=== PATIENT | male | born 1960 | race Caucasian/White ===

== ENCOUNTER 2022-02-19 18:37 | Observation (INO) | payer OTHER ==
[~2022-02-19] VITALS: Ht 185.4 cm; Wt 93.0 kg
[2022-02-19 19:21] LABS: HEMOGLOBIN 14.8 gm/dl (14.0-17.5); RED BLOOD COUNT 4.93 M/UL (4.20-5.50); WHITE BLOOD COUNT 12.7 K/UL (4.5-11.0)
[2022-02-19 20:00] LABS: BUN/CREATININE RATIO 14 (0-10)
[2022-02-20 04:40] LABS: HEMOGLOBIN 13.8 gm/dl (14.0-17.5); RED BLOOD COUNT 4.58 M/UL (4.20-5.50)
[2022-02-20 05:05] LABS: BUN/CREATININE RATIO 18 (0-10)
--- NOTE | 2022-02-20 05:24 | NUR ---
NOTIFIED DR. YANG OF ABNORMAL EKG RESULTS, NO NEW ORDERS AT THIS TIME.
--- NOTE | 2022-02-20 05:50 | NUR ---
NOTIFIED DR. YANG OF TROPONIN OF 119.3, AND REMINDED HIM THAT THE PREVIOUS ONE WAS 58.9. NO NEW ORDERS AT THIS TIME. WILL PASS ALONG TO DAYSHIFT NURSE.
--- NOTE | 2022-02-20 17:10 | NUR ---
called back pharmacist r/t patient home medications and stated he recived and will take care of the medications
[2022-02-21] MEDS ORDERED: SENNA8.6 MG PO (04:14)
[2022-02-21 05:14] LABS: RED BLOOD COUNT 4.28 M/UL (4.20-5.50); WHITE BLOOD COUNT 9.9 K/UL (4.5-11.0)
[2022-02-21 05:34] LABS: BUN/CREATININE RATIO 15 (0-10)
--- NOTE | 2022-02-21 08:47 | NUR ---
received order from dr. rawls and administered nitroglycerin as ordered and was given to patient x1 sl and when patient checked after 5 min patient denies chest pain. patient was given 022l via nasal canula r/t sob and when checked after 5 min patient was not using oxygen and pulse ox 99% and patient refused to use oxygne. at this time patient resting comfortably and continue to denies any chest pain.
--- NOTE | 2022-02-21 09:05 | NUR ---
patient condition reported and order received to dr. verduzco sausage meat trimmer
[2022-02-21] MEDS ORDERED: PROTONIX 40 MG40 M1 PO (12:09)
[2022-02-21] MEDS ORDERED: TRAMADOL HCL50 MG PO (12:10)
[2022-02-21] MEDS ORDERED: ASPIRIN EC81 MG PO (12:10)
[2022-02-21] MEDS ORDERED: COREG 3.125M3.125 MG PO (12:11)
[2022-02-21] MEDS ORDERED: FLUOXETINE HCL40 MG PO (12:11)
[2022-02-21] MEDS ORDERED: QUETIAPINE FUMA25 MG PO (12:12)
[2022-02-21] MEDS ORDERED: CRESTOR40 MG PO (12:12)
[2022-02-21] MEDS ORDERED: ZINC OXIDE60 GM TP (12:14)
[2022-02-21] MEDS ORDERED: PREGABALIN100 MG PO (12:15)
[2022-02-21] MEDS ORDERED: ACETAMINOPHEN500 MG PO (12:15)
[2022-02-21] MEDS ORDERED: HYDROCHLOROTHIA25 MG PO (12:16)
[2022-02-21] MEDS ORDERED: HYDROCODON-ACE1 EAC4 PO (12:17)
[2022-02-21] MEDS ORDERED: LISINOPRIL10 MG PO (12:18)
[2022-02-21] MEDS ORDERED: DOK100 M1 PO (12:19)
[2022-02-21] MEDS ORDERED: SODIUM CHLORIDE15 ML INH (12:19)
[2022-02-21] MEDS ORDERED: LACTULOSE10 GM/151 PO (12:20)
[2022-02-21] MEDS ORDERED: VOLTAREN ARTHRI20 GM TOP (12:21)
[2022-02-21] MEDS ORDERED: BISACODYL10 MG PR (13:16)
[2022-02-21] MEDS ORDERED: LIORESAL TAB 1010 MG PO ×2 (13:17→13:18)
[2022-02-22 04:17] LABS: BUN/CREATININE RATIO 18 (0-10)
[2022-02-22 04:20] LABS: HEMOGLOBIN 12.3 gm/dl (14.0-17.5); RED BLOOD COUNT 4.11 M/UL (4.20-5.50); WHITE BLOOD COUNT 8.6 K/UL (4.5-11.0)
[2022-02-22] MEDS ORDERED: ISOSORBIDE MONO30 MG PO (09:55)
[2022-02-22] MEDS ORDERED: RANEXA500 MG PO (09:55)
--- NOTE | 2022-02-22 15:08 | NUR ---
PATIENT RECEIVED FROM SUREKHA, I AGREE WITH HER ASSESSMENT
--- NOTE | 2022-02-22 21:05 | NUR ---
REPORT GIVEN TO [facility], SKIN ASSESSMENT COMPLETED-NO SKIN ISSUES NOTED. VITALS 97.9, HR 77, O2 98% ON ROOM AIR, RR 16 AND BP 105/55. PT NOTED WITH NO COMPLAINTS OF PAIN OR CONCERNS AT THIS TIME.
--- NOTE | 2022-02-22 21:14 | NUR ---
211: PATIENT LEFT THE FLOOR WITH EMS X2, STABLE.
== END 2022-02-22 21:21 ==
LOC: ER1 18:37 → M/S 02-20 01:50 → CDU 02-20 01:50 → M/S 02-20 02:55
PROVIDERS: Internal Medicine; Internal Medicine Cardiovascular Disease; Physician Assistant; ADMIT Internal Medicine
DX: R07.89 Other chest pain (principal); I10 Essential (primary) hypertension; F32.A Depression, unspecified; I25.10 Atherosclerotic heart disease of native coronary artery without angina pectoris; J44.9 Chronic obstructive pulmonary disease, unspecified; K21.9 Gastro-esophageal reflux disease without esophagitis; K80.20 Calculus of gallbladder without cholecystitis without obstruction; I69.020 Aphasia following nontraumatic subarachnoid hemorrhage; I69.051 Hemiplegia and hemiparesis following nontraumatic subarachnoid hemorrhage affecting right dominant side; E78.5 Hyperlipidemia, unspecified; Z20.822 Contact with and (suspected) exposure to COVID-19; I07.1 Rheumatic tricuspid insufficiency; Z79.82 Long term (current) use of aspirin; R77.8 Other specified abnormalities of plasma proteins
CPT/HCPCS: ECHO; 36415; 71045; 76705; 80048; 80053; 80061; 81001; 82533; 82550; 82553; 83605; 83690; 83735; 83880; 83930; 83935; 84100; 84300; 84439; 84443; 84484; 84550; 85025; 86140; 87086; 92610; 93005; 93306; 96372; 96374; 96376; 99285; G0378; J1650; J2405; Q9967; U0002

== ENCOUNTER 2022-03-30 21:15 | Emergency (ER) | payer OTHER ==
[~2022-03-30 21:15] MED LIST: ACETAMINOPHEN500 MG PO; ASPIRIN EC81 MG PO; BISACODYL10 MG PR; COREG 3.125M3.125 MG PO; CRESTOR40 MG PO; DOK100 M1 PO; FLUOXETINE HCL40 MG PO; HYDROCHLOROTHIA25 MG PO; HYDROCODON-ACE1 EAC4 PO; ISOSORBIDE MONO30 MG PO; LACTULOSE10 GM/151 PO; LIORESAL TAB 1010 MG PO; LISINOPRIL10 MG PO; PREGABALIN100 MG PO; PROTONIX 40 MG40 M1 PO; QUETIAPINE FUMA25 MG PO; RANEXA500 MG PO; SENNA8.6 MG PO; SODIUM CHLORIDE15 ML INH; TRAMADOL HCL50 MG PO; VOLTAREN ARTHRI20 GM TOP; ZINC OXIDE60 GM TP
[2022-03-30 21:50] LABS: HEMOGLOBIN 14.5 gm/dl (14.0-17.5); RED BLOOD COUNT 4.7 M/UL (4.20-5.50); WHITE BLOOD COUNT 8.3 K/UL (4.5-11.0)
[2022-03-30 22:12] LABS: BUN/CREATININE RATIO 15 (0-10)
== END 2022-03-31 01:48 | disposition home or self-care (01) ==
LOC: ER1 21:15
PROVIDERS: Physician Assistant
DX: R51.9 Headache, unspecified (principal); R11.2 Nausea with vomiting, unspecified; M54.2 Cervicalgia; E11.9 Type 2 diabetes mellitus without complications; I10 Essential (primary) hypertension; Z86.73 Personal history of transient ischemic attack (TIA), and cerebral infarction without residual deficits
CPT/HCPCS: 70450; 72125; 80053; 85025; 93005; 96374; 96375; 99284; J2270; J2405

== ENCOUNTER → 2022-05-07 | Outpatient (CLI) | payer OTHER | LOC: LAB 19:39 | DX: E11.9 Type 2 diabetes mellitus without complications (principal); E78.5 Hyperlipidemia, unspecified; I10 Essential (primary) hypertension | CPT/HCPCS: 84153 ==

== ENCOUNTER 2022-07-06 11:29 | Emergency (ER) | payer OTHER ==
[2022-07-06 11:52] LABS: HEMOGLOBIN 15.1 gm/dl (14.0-17.5); RED BLOOD COUNT 4.89 M/UL (4.20-5.50); WHITE BLOOD COUNT 8.4 K/UL (4.5-11.0)
[2022-07-06 12:22] LABS: BUN/CREATININE RATIO 10 (0-10)
== END 2022-07-06 11:50 | disposition short-term general hospital (02) ==
LOC: ER1 11:29
PROVIDERS: Emergency Medicine
DX: I63.9 Cerebral infarction, unspecified (principal); R47.1 Dysarthria and anarthria; G81.94 Hemiplegia, unspecified affecting left nondominant side; R29.712 NIHSS score 12; R40.2410 Glasgow coma scale score 13-15, unspecified time; E78.5 Hyperlipidemia, unspecified; I10 Essential (primary) hypertension; J44.9 Chronic obstructive pulmonary disease, unspecified; K21.9 Gastro-esophageal reflux disease without esophagitis; Z85.820 Personal history of malignant melanoma of skin; Z51.81 Encounter for therapeutic drug level monitoring
CPT/HCPCS: 70450; 71045; 80053; 82550; 82553; 84484; 85025; 85610; 85730; 93005; 99285; J2997